=== PATIENT | male | born 1975 | race Caucasian/White ===

== ENCOUNTER 2017-12-13 09:29 | Emergency (ER) | payer SELFPAY ==
[2017-12-13] MEDS: IBUPROFEN 800 MG TAB PO (10:01)
== END 2017-12-13 11:17 | disposition home or self-care (01) ==
LOC: FTE 09:29
DX: S62.301A Unspecified fracture of second metacarpal bone, left hand, initial encounter for closed fracture (principal); F17.210 Nicotine dependence, cigarettes, uncomplicated; X58.XXXA Exposure to other specified factors, initial encounter; Y92.9 Unspecified place or not applicable
CPT/HCPCS: 29125; 73130-LT; 99283-25

== ENCOUNTER 2018-01-06 15:41 | Emergency (ER) | payer MEDICAID | END 2018-01-06 17:32 | disposition home or self-care (01) | LOC: FTE 15:41 | DX: H00.015 Hordeolum externum left lower eyelid (principal); F17.210 Nicotine dependence, cigarettes, uncomplicated | CPT/HCPCS: 99284; Z7502 ==

== ENCOUNTER 2018-02-01 18:34 | Emergency (ER) | payer SELFPAY, MEDICAID ==
[2018-02-01] MEDS ORDERED: LIDOCAINE 1% (MDV) 10 ML INJ INFIL (19:57)
[2018-02-01] MEDS: CEFTRIAXONE 500 MG INJ IM (20:11)
[2018-02-01] MEDS: AZITHROMYCIN 250 MG TAB PO (20:12)
[2018-02-01 20:29] LABS: ADD UMIC NO; UR ASCORBIC ACID NEGATIVE (NEGATIVE); UR BILIRUBIN (Dip) NEGATIVE (NEGATIVE); UR BLOOD (Dip) NEGATIVE (NEGATIVE); UR CLARITY CLEAR (CLEAR); UR COLOR YELLOW (YELLOW); UR GLUCOSE (Dip) NEGATIVE (NEGATIVE); UR KETONES (Dip) NEGATIVE (NEGATIVE); UR LEUKOCYTE ESTERASE (Dip) NEGATIVE Leu/ul (NEGATIVE); UR NITRITE (Dip) NEGATIVE (NEGATIVE); UR SPECIFIC GRAVITY (Dip) 1.026 (1.003-1.030); UR TOTAL PROTEIN (Dip) NEGATIVE (NEGATIVE); UR UROBILINOGEN (Dip) NEGATIVE (NEGATIVE)
== END 2018-02-01 21:11 | disposition home or self-care (01) ==
LOC: FTE 18:34
DX: R30.0 Dysuria (principal); Z87.891 Personal history of nicotine dependence
CPT/HCPCS: 81003; 87591; 96372; 99284-25